=== PATIENT | male | born 1960 | race Caucasian/White ===

== ENCOUNTER 2016-11-19 17:28 | Observation (INO) | payer MEDICARE ==
[~2016-11-19] VITALS: Ht 188 cm; Wt 156.1 kg
[2016-11-19] MEDS ORDERED: ASPIRIN CHEWABLE 81 MG TABLET. PO ONE (17:30)
[2016-11-19 17:47] LABS: BASO # 0.1 x10^3/uL (0.0-0.2); BASO % 2 % (0-3); EOS % 3 % (0-3); HEMATOCRIT 45.4 % (39.0-53.0); HEMOGLOBIN 15.7 g/dL (13.0-17.5); LYMPH # 2.4 x10^3/uL (1.0-4.8); LYMPH % 28 % (24-48); MEAN CORPUSCULAR HEMOGLOBIN 33 pg (25-35); MEAN CORPUSCULAR HGB CONC 35 g/dL (31-37); MEAN CORPUSCULAR VOLUME 96 fL (79-100); MONO % 9 % (0-9); NEUT % 59 % (31-73); PLATELET COUNT 271 x10^3/uL (140-400); RED BLOOD COUNT 4.72 x10^6/uL (4.30-5.70); WHITE BLOOD COUNT 8.7 x10^3/uL (4.0-11.0)
--- NOTE | 2016-11-19 17:55 | PHYS DOC ---
Past Medical History Past Medical History: Diabetes-Type II, Hypertension, Other Additional Past Medical Histor: 'MINOR STROKE' Past Surgical History: Cholecystectomy, Knee Replacement, Tonsillectomy, Other Additional Past Surgical Histo: SPINE X2, NASAL X2, L SHOULDER, VASECTOMY, HERNIA Alcohol Use: Occasionally Drug Use: None Adult General Chief Complaint Chief Complaint: CHEST PAIN [facility] HPI Patient is a 56 year old male who presents with complaints of left-sided chest pain that started approximately 45 minutes prior to arrival. Associated symptoms were diaphoresis and nausea as well as shortness of breath. There is no radiation of the pain. His [place] almost resolved after administration of nitroglycerin sublingual by EMS. Also the patient was hypoglycemic. [place] and he was giving some dextrose. Patient currently describing the pain as still left -sided in one to 2. Patient denies any lower extremity pain or swelling, currently he does not feel any shortness of breath. Last heart catheterization was approximately 3 years ago, no recent stress test. Review of Systems Review of Systems Constitutional: Denies fever or chills [] Eyes: Denies change in visual acuity, redness, or eye pain [] HENT: Denies neck pain Respiratory: Denies cough or shortness of breath [] Cardiovascular: No additional information not addressed in HPI [] GI: Denies abdominal pain, vomiting, bloody stools or diarrhea . Yes nausea : Denies dysuria or hematuria [] Musculoskeletal: Denies back pain or joint pain, no edema Integument: Denies rash or skin lesions [] Neurologic: Denies headache, focal weakness or sensory changes [] Psych: Anxious Endocrine: Denies polyuria or polydipsia [] Current Medications Current Medications Current Medications Medications (Trade) Dose Ordered Sig/[facility] Start Time Stop Time Status Last Admin Dose Admin Aspirin (Children'S Aspirin) 324 mg 1X ONCE 11/19/16 17:30 11/19/16 17:39 DC Allergies Allergies Allergies Coded Allergies Type Severity Reaction Last Updated Verified enoxaparin Allergy Intermediate Hives 11/19/16 No hydromorphone Adverse Reaction Intermediate 11/19/16 Yes Physical Exam Physical Exam Constitutional: Well developed, well nourished, mild distress, non-toxic appearance. [] HENT: Normocephalic, atraumatic, oropharynx moist, dry mucous membranes, nose normal. [] Eyes: EOMI, conjunctiva normal, no discharge. [] Neck: Normal range of motion, no tenderness, supple, no stridor. No JVD Cardiovascular:Heart rate regular rhythm, no murmur, normal perfusion Lungs & Thorax: Bilateral breath sounds clear to auscultation, no tachypnea Abdomen: Bowel sounds normal, soft, no tenderness, no masses, no pulsatile masses. [] Skin: Warm, dry, no erythema, no rash. [] Back: No tenderness, no CVA tenderness. Normal range of motion Extremities: No tenderness, no cyanosis, ROM intact, no edema. [] Neurologic: Alert and oriented X 3, normal motor function, no focal deficits noted. [] Psychologic: Affect normal, judgement normal, anxious [] Current Patient Data Vital Signs Vital Signs Date Time Temp Pulse Resp B/P (MAP) Pulse Ox O2 Delivery O2 Flow Rate FiO2 11/19/16 19:43 68 18 129/77 (94) 97 Room Air 11/19/16 17:28 98.9 98.9 Lab Values Laboratory Tests Test 11/19/16 17:30 11/19/16 17:41 White Blood Count 8.7 x10^3/uL (4.0-11.0) Red Blood Count 4.72 x10^6/uL (4.30-5.70) Hemoglobin 15.7 g/dL (13.0-17.5) Hematocrit 45.4 % (39.0-53.0) Mean Corpuscular Volume 96 fL (79-100) Mean Corpuscular Hemoglobin 33 pg (25-35) Mean Corpuscular Hemoglobin Concent 35 g/dL (31-37) Red Cell Distribution Width 13.0 % (11.5-14.5) Platelet Count 271 x10^3/uL (140-400) Neutrophils (%) (Auto) 59 % (31-73) Lymphocytes (%) (Auto) 28 % (24-48) Monocytes (%) (Auto) 9 % (0-9) Eosinophils (%) (Auto) 3 % (0-3) Basophils (%) (Auto) 2 % (0-3) Neutrophils # (Auto) 5.1 x10^3uL (1.8-7.7) Lymphocytes # (Auto) 2.4 x10^3/uL (1.0-4.8) Monocytes # (Auto) 0.8 x10^3/uL (0.0-1.1) Eosinophils # (Auto) 0.3 x10^3/uL (0.0-0.7) Basophils # (Auto) 0.1 x10^3/uL (0.0-0.2) Sodium Level 138 mmol/L (136-145) Potassium Level 3.7 mmol/L (3.5-5.1) Chloride Level 101 mmol/L (98-107) Carbon Dioxide Level 21 mmol/L (21-32) Anion Gap 16 (6-14) H Blood Urea Nitrogen 14 mg/dL (8-26) Creatinine 0.9 mg/dL (0.7-1.3) Estimated GFR (Cockcroft-Gault) 87.6 Glucose Level 119 mg/dL (70-99) H Calcium Level 9.5 mg/dL (8.5-10.1) Troponin I Quantitative < 0.017 ng/mL (0.000-0.055) Glucose (Fingerstick) 112 mg/dL (70-99) H Laboratory Tests 11/19/16 17:30 Laboratory Tests 11/19/16 17:30 EKG EKG 1732 83, sinus rhythm, no STEMI [] Radiology/Procedures Radiology/Procedures preliminary read negative on chest Xray[] Course & Med Decision Making Course & Med Decision Making Pertinent Labs and Imaging studies reviewed. (See chart for details) discussed with patient and the family. Questions were sought and answered. Patient agrees to admission for monitoring overnight. 1951 d/w Dr Mcknight who agrees to admit [] Dragon Disclaimer Dragon Disclaimer This electronic medical record was generated, in whole or in part, using a voice recognition dictation system. Departure Departure Impression: Primary Impression: Chest pain Additional Impression: Hypoglycemia Disposition: ADMITTED INPATIENT Admitting Physician: Shelly Mcknight Referrals: NON,STAFF (PCP) Problem Qualifiers Yamileth POTTER MD Nov 19, 2016 17:55
[2016-11-19 17:58] LABS: CALCIUM 9.5 mg/dL (8.5-10.1); CREATININE 0.9 mg/dL (0.7-1.3); GFR 87.6; POTASSIUM 3.7 mmol/L (3.5-5.1)
[2016-11-19] MEDS ORDERED: ONDANSETRON PF 4 MG/2 ML VIAL. IV PRN (20:00)
[2016-11-19] MEDS ORDERED: NITROGLYCERIN SUBLINGUAL 0.4 MG BOTTLE OF 25. SL PRN (20:00)
[2016-11-19] MEDS ORDERED: MORPHINE SULFATE 2 MG/ML DISP.SYRIN. IV PRN (20:00)
[2016-11-19] MEDS ORDERED: ACETAMINOPHEN 325 MG TABLET. PO PRN (20:00)
[2016-11-19 21:22] VITALS: BP 127/73
[2016-11-19 23:05] VITALS: BP 109/49
--- NOTE | 2016-11-19 23:06 | PDOC1 ---
History and Physical Date of Admission Date of Admission DATE: 11/19/16 TIME: 23:00 Identification/Chief Complaint Chief Complaint chest pain Problems: Source Source: Chart review, Patient History of Present Illness History of Present Illness MR. Adhikari, is a 56 year old male admit with acute left-sided chest pain tonight, he went to the fire station for not feeling well, acute stabbing chest pain with diaphorsis, "like I got punched in the chest" his blood sugar was checked there and was low at 33. chest pain better after SL nitro X2. marked dyspnea and weakness, some back to back, but pain almost resolved by time he hit the ER> blood sugar and other labs largely stable here. he reports good cholesterol levels at last physical a few months ago. . Last heart catheterization was approximately 3 years ago, no recent stress test. he is disabled due to neck and back pain Past Medical History Cardiovascular: CHF, HTN Pulmonary: No pertinent hx GI: No pertinent hx Heme/Onc: No pertinent hx Psych: No pertinent hx Musculoskeletal: low back pain, Osteoarthritis (neck, disabled) ENT: No pertinent hx Renal/: No pertinent hx Endocrine: Diabetes Dermatology: No pertinent hx Past Surgical History Past Surgical History: Other Family History Family History: No Significant Social History Smoke: No ALCOHOL: rare Drugs: None Current Problem List Problem List Problems Medical Problems: (1) Chest pain Status: Acute (2) Hypoglycemia Status: Acute Problems: Current Medications Current Medications Current Medications Aspirin (Children'S Aspirin) 324 mg 1X ONCE PO ; Start 11/19/16 at 17:30; Stop 11/19/16 at 17:39; Status DC Ondansetron HCl (Zofran) 4 mg PRN Q8HRS PRN IV NAUSEA/VOMITING; Start 11/19/16 at 20:00; Stop 11/20/16 at 19:59 Morphine Sulfate 2 mg PRN Q2HR PRN IV PAIN; Start 11/19/16 at 20:00; Stop 11/20 at 19:59 Acetaminophen (Tylenol) 650 mg PRN Q4HRS PRN PO FEVER; Start 11/19/16 at 20:00 ; Stop 11/20/16 at 19:59 Nitroglycerin (Nitrostat) 0.4 mg PRN Q5MIN PRN SL CHEST PAIN; Start 11/19/16 at 20:00; Stop 11/20/16 at 19:59 Allergies Allergies: Coded Allergies: enoxaparin (Unverified Allergy, Intermediate, Hives, 11/19/16) "IT GIVES ME HIVES WHEN YOU BREATHE ON ME" hydromorphone (Verified Adverse Reaction, Intermediate, 11/19/16) CHEST PAIN ROS General: YES: Appetite, No: Chills, Night Sweats, Fatigue, Malaise, Other PSYCHOLOGICAL ROS: No: Anxiety, Behavioral Disorder, Concentration difficultie , Decreased libido, Depression, Disorientation, Hallucinations, Hostility, Irritablity, Memory difficulties, Mood Swings, Obsessive thoughts, Physical abuse, Sexual abuse, Sleep disturbances, Suicidal ideation, Other Eyes: No Blurry vision, No Decreased vision, No Double vision, No Dry eyes, No Excessive tearing, No Eye Pain, No Itchy Eyes, No Loss of vision, No Photophobia , No Scotomata, No Uses contacts, No Uses glasses, No Other HEENT: YES: Heacaches, No: Visual Changes, Hearing change, Nasal congestion, Nasal discharge, Oral lesions, Sinus pain, Sore Throat, Epistaxis, Sneezing, Snoring, Tinnitus, Vertigo, Vocal changes, Other Respiratory: YES: SOB with excertion, No: Cough, Hemoptysis, Orthopnea, Pleuritic Pain, Shortness of breath, Sputum Changes, Stridor, Tachypnea, Wheezing, Other Cardiovascular: yes Chest Pain, No Palpitations, No Orthopnea, No Paroxysmal Noc. Dyspnea, No Edema, No Lt Headedness, No Other Gastrointestinal: No Nausea, No Vomiting, No Abdominal Pain, No Diarrhea, No Constipation, No Melena, No Hematochezia, No Other Genitourinary: No Dysuria, No Frequency, No Incontinence, No Hematuria, No Retention, No Discharge, No Urgency, No Pain, No Flank Pain, No Other, No , No , No , No , No , No , No Musculoskeletal: No Gait Disturbance, No Joint Pain, No Joint Stiffness, No Joint Swelling, No Muscle Pain, No Muscular Weakness, No Pain In:, No Swelling In:, No Other Neurological: No Behavorial Changes, No Bowel/Bladder ControlChng, No Confusion , No Dizziness, No Gait Disturbance, No Headaches, No Impaired Coord/balance, No Memory Loss, No Numbness/Tingling, No Seizures, No Speech Problems, No Tremors, No Visual Changes, No Weakness, No Other Skin: No Dry Skin, No Eczema, No Hair Changes, No Lumps, No Mole Changes, No Mottling, No Nail Changes, No Pruritus, No Rash, No Skin Lesion Changes, No Other, No Acne Physical Exam General: Alert, Oriented X3, Cooperative, No acute distress HEENT: Atraumatic, PERRLA, EOMI, Mucous membr. moist/pink Lungs: Clear to auscultation, Normal air movement Heart: no gallops, no murmurs Abdomen: Normal bowel sounds, Soft (obese) Extremities: No cyanosis, Other (tr edema) Skin: No rashes, No significant lesion Neuro: Normal tone, Sensation intact Psych/Mental Status: Mood NL Vitals Vitals Vital Signs Date Time Temp Pulse Resp B/P (MAP) Pulse Ox O2 Delivery O2 Flow Rate FiO2 11/19/16 21:22 98.1 56 18 127/73 (91) 97 Room Air 98.1 Labs Labs Laboratory Tests Test 11/19/16 12:30 11/19/16 17:30 11/19/16 17:41 Troponin I Quantitative < 0.017 ng/mL (0.000-0.055) < 0.017 ng/mL (0.000-0.055) White Blood Count 8.7 x10^3/uL (4.0-11.0) Red Blood Count 4.72 x10^6/uL (4.30-5.70) Hemoglobin 15.7 g/dL (13.0-17.5) Hematocrit 45.4 % (39.0-53.0) Mean Corpuscular Volume 96 fL (79-100) Mean Corpuscular Hemoglobin 33 pg (25-35) Mean Corpuscular Hemoglobin Concent 35 g/dL (31-37) Red Cell Distribution Width 13.0 % (11.5-14.5) Platelet Count 271 x10^3/uL (140-400) Neutrophils (%) (Auto) 59 % (31-73) Lymphocytes (%) (Auto) 28 % (24-48) Monocytes (%) (Auto) 9 % (0-9) Eosinophils (%) (Auto) 3 % (0-3) Basophils (%) (Auto) 2 % (0-3) Neutrophils # (Auto) 5.1 x10^3uL (1.8-7.7) Lymphocytes # (Auto) 2.4 x10^3/uL (1.0-4.8) Monocytes # (Auto) 0.8 x10^3/uL (0.0-1.1) Eosinophils # (Auto) 0.3 x10^3/uL (0.0-0.7) Basophils # (Auto) 0.1 x10^3/uL (0.0-0.2) Sodium Level 138 mmol/L (136-145) Potassium Level 3.7 mmol/L (3.5-5.1) Chloride Level 101 mmol/L (98-107) Carbon Dioxide Level 21 mmol/L (21-32) Anion Gap 16 (6-14) Blood Urea Nitrogen 14 mg/dL (8-26) Creatinine 0.9 mg/dL (0.7-1.3) Estimated GFR (Cockcroft-Gault) 87.6 Glucose Level 119 mg/dL (70-99) Calcium Level 9.5 mg/dL (8.5-10.1) Glucose (Fingerstick) 112 mg/dL (70-99) Laboratory Tests Test 11/19/16 12:30 11/19/16 17:30 11/19/16 17:41 Troponin I Quantitative < 0.017 ng/mL (0.000-0.055) < 0.017 ng/mL (0.000-0.055) White Blood Count 8.7 x10^3/uL (4.0-11.0) Red Blood Count 4.72 x10^6/uL (4.30-5.70) Hemoglobin 15.7 g/dL (13.0-17.5) Hematocrit 45.4 % (39.0-53.0) Mean Corpuscular Volume 96 fL (79-100) Mean Corpuscular Hemoglobin 33 pg (25-35) Mean Corpuscular Hemoglobin Concent 35 g/dL (31-37) Red Cell Distribution Width 13.0 % (11.5-14.5) Platelet Count 271 x10^3/uL (140-400) Neutrophils (%) (Auto) 59 % (31-73) Lymphocytes (%) (Auto) 28 % (24-48) Monocytes (%) (Auto) 9 % (0-9) Eosinophils (%) (Auto) 3 % (0-3) Basophils (%) (Auto) 2 % (0-3) Neutrophils # (Auto) 5.1 x10^3uL (1.8-7.7) Lymphocytes # (Auto) 2.4 x10^3/uL (1.0-4.8) Monocytes # (Auto) 0.8 x10^3/uL (0.0-1.1) Eosinophils # (Auto) 0.3 x10^3/uL (0.0-0.7) Basophils # (Auto) 0.1 x10^3/uL (0.0-0.2) Sodium Level 138 mmol/L (136-145) Potassium Level 3.7 mmol/L (3.5-5.1) Chloride Level 101 mmol/L (98-107) Carbon Dioxide Level 21 mmol/L (21-32) Anion Gap 16 (6-14) Blood Urea Nitrogen 14 mg/dL (8-26) Creatinine 0.9 mg/dL (0.7-1.3) Estimated GFR (Cockcroft-Gault) 87.6 Glucose Level 119 mg/dL (70-99) Calcium Level 9.5 mg/dL (8.5-10.1) Glucose (Fingerstick) 112 mg/dL (70-99) VTE Prophylaxis Ordered VTE Prophylaxis Devices: No VTE Pharmacological Prophylaxi: Yes Assessment/Plan Assessment/Plan Angina, r.o ACS, consult CV for eval it stable angina he reports prior clear cardiac caths, morbid obesity, BMI 44 Dm2, with PO agents, and hypoglycemia before brought to hospital htn CHF, chronic diastolic QIANA PUGA MD Nov 19, 2016 23:05
[2016-11-19] MEDS ORDERED: CARV25TA2 PO (23:51)
[2016-11-19] MEDS ORDERED: MONT10TA9 PO (23:51)
[2016-11-19] MEDS ORDERED: LOSA100T6 PO (23:51)
[2016-11-19] MEDS ORDERED: ASPI325T8 PO (23:51)
[2016-11-19] MEDS ORDERED: DICY20TA3 PO (23:51)
[2016-11-19] MEDS ORDERED: EMPA1TAB PO (23:51)
[2016-11-19] MEDS ORDERED: FURO20TA3 PO (23:51)
[2016-11-19] MEDS ORDERED: GLIM2TAB2 PO (23:51)
[2016-11-20 03:00] VITALS: BP 136/68
[2016-11-20 05:18] LABS: BASO # 0.1 x10^3/uL (0.0-0.2); BASO % 1 % (0-3); EOS % 5 % (0-3); HEMATOCRIT 45.1 % (39.0-53.0); LYMPH % 30 % (24-48); MEAN CORPUSCULAR HEMOGLOBIN 34 pg (25-35); MEAN CORPUSCULAR HGB CONC 36 g/dL (31-37); MEAN CORPUSCULAR VOLUME 96 fL (79-100); MONO % 10 % (0-9); NEUT % 54 % (31-73); PLATELET COUNT 240 x10^3/uL (140-400); RED CELL DISTRIBUTION WIDTH 12.9 % (11.5-14.5); WHITE BLOOD COUNT 6.6 x10^3/uL (4.0-11.0)
[2016-11-20 05:45] LABS: CALCIUM 9.2 mg/dL (8.5-10.1); CREATININE 0.8 mg/dL (0.7-1.3); GFR 100.4; POTASSIUM 3.9 mmol/L (3.5-5.1)
[2016-11-20 06:00] LABS: CHOLESTEROL/HDL RATIO 3.5
[2016-11-20 07:00] VITALS: BP 149/72
--- NOTE | 2016-11-20 07:14 | EKG ---
[facility] [address] [place] [address] Test Date: 2016-11-19 Test Time: 17:25:33 Pat Name: HAILE VASQUES Department: Room: [facility] Gender: M [employer]: : 1960 Requested By: Yamileth POTTER Order Number: [id number] Reading MD: Landry Holm Measurements Intervals [place] Rate: 83 P: 47 CT: 176 QRS: 150 QRSD: 96 T: 43 QT: 352 QTc: 419 Interpretive Statements SINUS RHYTHM NON-SPECIFIC ST/T CHANGES Electronically Signed On 11-25-2016 8:37:41 CDT by Landry Holm
[2016-11-20] MEDS ORDERED: CARVEDILOL 12.5 MG TABLET. PO SCH (08:00)
--- NOTE | 2016-11-20 08:09 | RAD ---
Exam performed: One view chest. Indication: chest pain Date of Service: 11/19/2016 7:30 PM Comparison: 04/11/13. Single AP upright portable view chest findings: Cardiomediastinal silhouette is within limits of normal. No acute infiltrates, effusion or pneumothorax is detected. The bony structures are normal. Impression: No acute cardiopulmonary process is detected.
[2016-11-20] MEDS ORDERED: FUROSEMIDE 20 MG TABLET PO SCH (09:00)
[2016-11-20] MEDS ORDERED: DICYCLOMINE HCL 10 MG CAPSULE PO SCH (09:00)
[2016-11-20] MEDS ORDERED: LOSARTAN POTASSIUM 50 MG TABLET. PO SCH (09:00)
[2016-11-20] MEDS ORDERED: ASPIRIN 325 MG TABLET PO SCH (09:00)
--- NOTE | 2016-11-20 09:35 | PDOC2 ---
VÍCTOR SUN IT PROGRAMMER ANALYST 11/20/16 0935: CARDIAC CONSULT DATE OF CONSULT Date of Consult DATE: 11/20/16 TIME: 09:31 REASON FOR CONSULT Reason for Consult: Chest pain with risk factors REFERRING PHYSICIAN Referring Physician: Dr. Bhat SOURCE Source: Chart review, Patient HISTORY OF PRESENT ILLNESS HISTORY OF PRESENT ILLNESS This is a 56 yo male who presented with complaints of chest pain. Patient was headed to chiropractor appointment and developed left sided chest pain. Describes as stabbing in nature. [place] like "getting stuck with ice pick." Worsened with movement. Improved with applying pressure to the area. Resolved in ED. Denies any associated dizziness, diaphoresis, palpitations, SOA, or nausea/vomiting. No prior h/o cardiac disease. Reports 3 previous "normal" cardiac cath's with most recent 3 years ago at [facility]. PAST MEDICAL HISTORY Cardiovascular: HTN Pulmonary: Other (CANDELARIO with BiPAP) CENTRAL NERVOUS SYSTEM: Other GI: No pertinent hx Heme/Onc: No pertinent hx Hepatobiliary: No pertinent hx Psych: No pertinent hx Musculoskeletal: Osteoarthritis Rheumatologic: No pertinent hx Infectious disease: No pertinent hx ENT: No pertinent hx Renal/: No pertinent hx Endocrine: Diabetes Dermatology: No pertinent hx PAST SURGICAL HISTORY Past Surgical History: Cholecystectomy, Hernia Repair, Tonsillectomy FAMILY HISTORY Family History: Cancer SOCIAL HISTORY Smoke: No ALCOHOL: none Drugs: None Lives: with Family CURRENT MEDICATIONS CURRENT MEDICATIONS Current Medications Medications (Trade) Dose Ordered Sig/[place] Route PRN Reason Start Time Stop Time Status Last Admin Dose Admin Aspirin (Yanelis Aspirin) 325 mg DAILY PO 11/20/16 09:00 11/20/16 09:05 Furosemide (Lasix) 20 mg DAILY PO 11/20/16 09:00 11/20/16 09:05 Dicyclomine HCl (Bentyl) 20 mg BID PO 11/20/16 09:00 11/20/16 09:05 Losartan Potassium (Cozaar) 100 mg DAILY PO 11/20/16 09:00 11/20/16 09:06 ALLERGIES ALLERGIES: Coded Allergies: enoxaparin (Unverified Allergy, Intermediate, Hives, 11/19/16) "IT GIVES ME HIVES WHEN YOU BREATHE ON ME" hydromorphone (Verified Adverse Reaction, Intermediate, 11/19/16) CHEST PAIN ROS Review of System 14 point ROS conducted with pertinent positives noted above in HPI. PHYSICAL EXAM General: Alert, Oriented X3, Cooperative, No acute distress HEENT: Atraumatic, Mucous membr. moist/pink Lungs: Clear to auscultation, Normal air movement Heart: Regular rate, Normal S1, Normal S2, No murmurs, Other (left chest tenderness upon palpations) Abdomen: Soft, No tenderness Extremities: No edema, Normal pulses Skin: No significant lesion Neuro: Normal speech, Sensation intact Psych/Mental Status: Mental status NL, Mood NL MUSCULOSKELETAL: Osteoarthritic changes both hands VITALS VITALS Vital Signs Date Time Temp Pulse Resp B/P (MAP) Pulse Ox O2 Delivery O2 Flow Rate FiO2 11/20/16 09:06 55 149/72 11/20/16 07:00 97.6 18 97 Room Air 97.6 LABS Lab: Laboratory Tests Test 11/19/16 12:30 11/19/16 17:30 11/19/16 17:41 11/19/16 23:30 Troponin I Quantitative < 0.017 ng/mL (0.000-0.055) < 0.017 ng/mL (0.000-0.055) < 0.017 ng/mL (0.000-0.055) White Blood Count 8.7 x10^3/uL (4.0-11.0) Red Blood Count 4.72 x10^6/uL (4.30-5.70) Hemoglobin 15.7 g/dL (13.0-17.5) Hematocrit 45.4 % (39.0-53.0) Mean Corpuscular Volume 96 fL (79-100) Mean Corpuscular Hemoglobin 33 pg (25-35) Mean Corpuscular Hemoglobin Concent 35 g/dL (31-37) Red Cell Distribution Width 13.0 % (11.5-14.5) Platelet Count 271 x10^3/uL (140-400) Neutrophils (%) (Auto) 59 % (31-73) Lymphocytes (%) (Auto) 28 % (24-48) Monocytes (%) (Auto) 9 % (0-9) Eosinophils (%) (Auto) 3 % (0-3) Basophils (%) (Auto) 2 % (0-3) Neutrophils # (Auto) 5.1 x10^3uL (1.8-7.7) Lymphocytes # (Auto) 2.4 x10^3/uL (1.0-4.8) Monocytes # (Auto) 0.8 x10^3/uL (0.0-1.1) Eosinophils # (Auto) 0.3 x10^3/uL (0.0-0.7) Basophils # (Auto) 0.1 x10^3/uL (0.0-0.2) Sodium Level 138 mmol/L (136-145) Potassium Level 3.7 mmol/L (3.5-5.1) Chloride Level 101 mmol/L (98-107) Carbon Dioxide Level 21 mmol/L (21-32) Anion Gap 16 (6-14) Blood Urea Nitrogen 14 mg/dL (8-26) Creatinine 0.9 mg/dL (0.7-1.3) Estimated GFR (Cockcroft-Gault) 87.6 Glucose Level 119 mg/dL (70-99) Calcium Level 9.5 mg/dL (8.5-10.1) Glucose (Fingerstick) 112 mg/dL (70-99) Test 11/20/16 04:05 White Blood Count 6.6 x10^3/uL (4.0-11.0) Red Blood Count 4.70 x10^6/uL (4.30-5.70) Hemoglobin 16.0 g/dL (13.0-17.5) Hematocrit 45.1 % (39.0-53.0) Mean Corpuscular Volume 96 fL (79-100) Mean Corpuscular Hemoglobin 34 pg (25-35) Mean Corpuscular Hemoglobin Concent 36 g/dL (31-37) Red Cell Distribution Width 12.9 % (11.5-14.5) Platelet Count 240 x10^3/uL (140-400) Neutrophils (%) (Auto) 54 % (31-73) Lymphocytes (%) (Auto) 30 % (24-48) Monocytes (%) (Auto) 10 % (0-9) Eosinophils (%) (Auto) 5 % (0-3) Basophils (%) (Auto) 1 % (0-3) Neutrophils # (Auto) 3.6 x10^3uL (1.8-7.7) Lymphocytes # (Auto) 2.0 x10^3/uL (1.0-4.8) Monocytes # (Auto) 0.6 x10^3/uL (0.0-1.1) Eosinophils # (Auto) 0.3 x10^3/uL (0.0-0.7) Basophils # (Auto) 0.1 x10^3/uL (0.0-0.2) Sodium Level 140 mmol/L (136-145) Potassium Level 3.9 mmol/L (3.5-5.1) Chloride Level 103 mmol/L (98-107) Carbon Dioxide Level 30 mmol/L (21-32) Anion Gap 7 (6-14) Blood Urea Nitrogen 15 mg/dL (8-26) Creatinine 0.8 mg/dL (0.7-1.3) Estimated GFR (Cockcroft-Gault) 100.4 Glucose Level 116 mg/dL (70-99) Calcium Level 9.2 mg/dL (8.5-10.1) Triglycerides Level 103 mg/dL (0-150) Cholesterol Level 160 mg/dL (0-200) LDL Cholesterol, Calculated 93 mg/dL (0-100) VLDL Cholesterol, Calculated 21 mg/dL (0-40) Non-HDL Cholesterol Calculated 114 mg/dL (0-129) HDL Cholesterol 46 mg/dL (40-60) Cholesterol/HDL Ratio 3.5 ASSESSMENT/PLAN ASSESSMENT/PLAN 1. Chest pain; atypical. troponin series normal- AMI ruled out. EKG without significant acute changes. 2. Hypertension; controlled. 3. Diabetes; per IM 4. CANDELARIO; with home BiPAP Recommendations Records review from [facility]; cardiac cath 06/02 with no obstructive disease. Will check echo to assess LV function. If WNL, may discharge from a CV standpoint with f/u with PCP in 1-2 weeks. Problems: ALISSA JUSTICE MD 11/20/16 1632: CARDIAC CONSULT ALLERGIES ALLERGIES: Coded Allergies: enoxaparin (Unverified Allergy, Intermediate, Hives, 11/19/16) "IT GIVES ME HIVES WHEN YOU BREATHE ON ME" hydromorphone (Verified Adverse Reaction, Intermediate, 11/19/16) CHEST PAIN ASSESSMENT/PLAN ASSESSMENT/PLAN Patient seen and examined. Agree with BAKESHOP CLEANER's assessment and plan. Chest pain with atypical features Myocardial infarction was ruled out 2-D echo showed normal LV function without any regional wall motion abnormalities Cardiac catheterization in 2013 did not show any significant coronary disease No further cardiac workup is indicated at this time Thank you for your consultation Problems: VÍCTOR SUN APRN Nov 20, 2016 09:35 ALISSA JUSTICE MD Nov 20, 2016 16:32
[2016-11-20 10:59] VITALS: BP 155/94
[2016-11-20] MEDS ORDERED: DEXTROSE 50% 25 GM / 50ML DISP.SYRIN. IV PRN (11:30)
[2016-11-20] MEDS ORDERED: INSULIN ASPART 300 UNITS/3 ML INSULN.PEN SQ SCH (12:00)
--- NOTE | 2016-11-20 12:21 | CARD ---
APPROVED REPORT EXAM: Two-dimensional and M-mode echocardiogram with Doppler and color Doppler. Other Information Quality : Average Rhythm : NSR INDICATION Chest Pain 2D DIMENSIONS RVDd4.0 (2.9-3.5cm)Left Atrium(2D)4.9 (1.6-4.0cm) IVSd1.5 (0.7-1.1cm)Aortic Root(2D)4.0 (2.0-3.7cm) LVDd6.7 (3.9-5.9cm)LVOT Diameter2.3 (1.8-2.4cm) PWd1.5 (0.7-1.1cm)LVDs4.2 (2.5-4.0cm) FS (%) 37.4 %SV150.6 ml LVEF(%)66.1 (>50%) Aortic Valve AoV Peak Teddy.136.9cm/sAoV VTI27.8cm AO Peak GR.7.5mmHgLVOT Peak Teddy.116.6cm/s LVOT VTI 26.93cmAO Mean GR.5mmHg ORALIA (VMAX)3.81ca3DPN (VTI)4.03cm2 Mitral Valve MV E Ezqggowh12.9cm/sMV DECEL IAIB794ql MV A Lejrijcq861.2cm/sMV RGQ77nh E/A Ratio0.9MV A Oidoykdb447my MVA (PHT)2.73cm2 TDI E/Lateral E'24.5E/Medial E'16.1 Pulmonary Valve PV Peak Cfejuxrf375.3cm/sPV Peak Grad.6mmHg RVOT VTI25.0cm Tricuspid Valve TR P. Pmcmmbhd639ug/sRAP PWYIPRHI5nnXo TR Peak Gr.81xzWiXPHW34obPj Pulmonary Vein S1 Ggpzynrv79.2cm/sD2 Zgcbrwnw99.0cm/s LEFT VENTRICLE The Left Ventricle is mildly dilated. There is moderate concentric left ventricular hypertrophy. Left ventricle systolic function is normal. The Ejection Fraction is 60-65%. There is normal LV segmental wall motion. The left ventricular diastolic function and filling is normal for age. There is no vent ricular septal defect visualized. RIGHT VENTRICLE The right ventricle is mildly dilated. The right ventricular systolic function is normal. ATRIA The left atrium is mildly dilated. The right atrium size is normal. The interatrial septum is intact with no evidence for an atrial septal defect or patent foramen ovale as noted on 2-D or Doppler imagi ng. AORTIC VALVE The aortic valve is normal in structure and function. The aortic valve is trileaflet. Doppler and Col or Flow revealed no significant aortic regurgitation. There is no significant aortic valvular stenosi s. MITRAL VALVE The mitral valve is normal in structure. There is no mitral valve stenosis. Doppler and Color Flow re vealed mild mitral regurgitation. TRICUSPID VALVE The tricuspid valve is not well visualized. Doppler and Color Flow revealed trace to mild tricuspid r egurgitation. The PA pressure was estimated at 27 mmHg. There is no tricuspid valve stenosis. PULMONIC VALVE The pulmonic valve is not well visualized. Doppler and Color Flow revealed no pulmonic valvular regur gitation. There is no pulmonic valvular stenosis. GREAT VESSELS The aortic root is normal in size. Normal pulmonary venous flow (Doppler). The IVC is normal in size and collapses >50% with inspiration. PERICARDIAL EFFUSION There is no evidence of significant pericardial effusion. Critical Notification Critical Value: No <Conclusion> Left ventricle systolic function is normal. The Ejection Fraction is 60-65%. There is normal LV segmental wall motion. Mild mitral regurgitation. Trace to mild tricuspid regurgitation. The PA pressure was estimated at 27 mmHg. There is no evidence of significant pericardial effusion.
--- NOTE | 2016-11-20 13:53 | PDOC3 ---
Discharge Summary [facility] Date of Admission: Nov 19, 2016 Discharge Date: Nov 20, 2016 Admitting Diagnosis chest pain, 2/2 hypoglycemia likely hypoglycemia with po DM meds dm2 morbid obesity no CHF HTN Problems: Final Diagnosis CONSULTS CARD Brief Hospital Course Mr. Adhikari is a 56 old M, came for left side chest pain, was found HTN very high and hypoglycemia, on po DM2 meds for many years. glucose now ok. bp ok. chest pain gone, mild tenderness. CE neg, EKG ok, Echo ok. dc home and fu with own card. recommend hold glimepiride dc time 35min General: Alert, Oriented X3, Cooperative, No acute distress HEENT: Atraumatic, PERRLA, EOMI, Mucous membr. moist/pink Lungs: Clear to auscultation, Normal air movement Heart: no gallops, no murmurs Abdomen: Normal bowel sounds, Soft (obese) Extremities: No cyanosis, Other (tr edema) Skin: No rashes, No significant lesion Neuro: Normal tone, Sensation intact Psych/Mental Status: Mood NL Patient History: Problems: Disposition home CONDITION AT DISCHARGE: Improved Diet cardiac Scheduled Aspirin (Aspirin), 1 TAB PO DAILY, (Reported) Carvedilol (Carvedilol), 1 TAB PO BID, (Reported) Dicyclomine Hcl (Dicyclomine Hcl), 1 TAB PO BID, (Reported) Furosemide (Furosemide), 1 TAB PO DAILY, (Reported) Losartan Potassium (Losartan Potassium), 100 MG PO DAILY, (Reported) Montelukast Sodium (Montelukast Sodium Tablet), 1 TAB PO DAILY, (Reported) Miscellaneous Medications Empagliflozin/Linagliptin (Glyxambi 25 mg-5 mg Tablet), 1 EACH PO, (Reported) Discontinued Medications Glimepiride (Glimepiride), 1 TAB PO DAILY, (Reported) Follow Up pcp tmr DIANDRA OATES MD Nov 20, 2016 13:53
[2016-11-20] MEDS ORDERED: MONTELUKAST SODIUM 10 MG TABLET. PO SCH (21:00)
== END 2016-11-20 14:50 | disposition home or self-care (01) ==
LOC: ER 17:28 → 6 SOUTH 19:48
PROVIDERS: ADMIT Internal Medicine; ATTEND Internal Medicine
DX: I20.8 Other forms of angina pectoris (principal); E11.649 Type 2 diabetes mellitus with hypoglycemia without coma; E66.01 Morbid (severe) obesity due to excess calories; I11.0 Hypertensive heart disease with heart failure; I50.32 Chronic diastolic (congestive) heart failure; M19.90 Unspecified osteoarthritis, unspecified site; G47.33 Obstructive sleep apnea (adult) (pediatric); Z68.41 Body mass index [BMI] 40.0-44.9, adult; Z96.659 Presence of unspecified artificial knee joint
CPT/HCPCS: 36415; 71010; 80048; 80061; 82962; 83735; 84443; 84484; 85025; 93005; 93306; 99285; G0378; J1815; G0379